=== PATIENT | female | born 1950 | race Caucasian/White ===

== ENCOUNTER 2017-03-26 17:22 | Emergency (ER) | payer MEDICARE, MEDICAID ==
[~2017-03-26] VITALS: Ht 170.2 cm; Wt 136.1 kg
[2017-03-26] MEDS ORDERED: PRINIVIL20 MG PO (17:31)
[2017-03-26] MEDS ORDERED: ARICEPT 5 MG TAB5 MG PO (17:31)
[2017-03-26] MEDS ORDERED: PLAVIX 75 MG TA75 M1 PO (17:31)
[2017-03-26] MEDS ORDERED: EYE DROPS15 M1 OPHTHALMIC (17:31)
[2017-03-26] MEDS ORDERED: COREG25 MG PO (17:32)
[2017-03-26] MEDS ORDERED: ZANTAC 150MG T150 MG PO (17:32)
[2017-03-26] MEDS ORDERED: NAMENDA 10 MG T10 MG PO (17:32)
[2017-03-26] MEDS ORDERED: NEURONTIN600 MG PO (17:32)
[2017-03-26] MEDS ORDERED: ZOLOFT50 MG PO (17:32)
[2017-03-26] MEDS ORDERED: CRESTOR10 MG PO (17:32)
[2017-03-26] MEDS ORDERED: APAP650 PO (17:33)
[2017-03-26] MEDS ORDERED: HYDROCODON-ACE1 EAC8 PO (17:33)
[2017-03-26] MEDS ORDERED: CARAFATE 1 GM TA1 G1 PO (17:33)
[2017-03-26] MEDS ORDERED: ARTIFICIAL TEAR15 M1 OPHTHALMIC (17:34)
[2017-03-26] MEDS ORDERED: IBUPROFEN 200200 M1 PO (17:35)
[2017-03-26] MEDS ORDERED: BENADRYL25 MG PO (17:35)
[2017-03-26] MEDS ORDERED: MILK OF MA2400 MG/10 PO (17:35)
[2017-03-26] MEDS ORDERED: COUGH DROPS2.7 MG PO (17:35)
[2017-03-26] MEDS ORDERED: ZADITOR5 M1 OPHTHALMIC (17:36)
[2017-03-26] MEDS ORDERED: VENTOLIN HFA 1818 GM INH (17:36)
[2017-03-26] MEDS ORDERED: LAMISIL AT12 GM TOP (17:37)
[2017-03-26] MEDS ORDERED: AMMONIUM LACTA226 GM TOP (17:37)
[2017-03-26] MEDS ORDERED: GLUTOSE GEL 1515 G1 PO (17:37)
[2017-03-26] MEDS ORDERED: LANTUS SOL100 UNIT/1 SUBQ (17:37)
[2017-03-26] MEDS ORDERED: NOVOLOG100 UNIT/1 SUBQ ×3 (17:38)
[2017-03-26] MEDS ORDERED: ASPIR 8181 MG PO (17:39)
[2017-03-26] MEDS ORDERED: ICY HOT1 EAC1 TOP (17:39)
[2017-03-26 18:08] LABS: ABSOLUTE BASOPHILS 0.1 thou/uL (0.0-0.2); ABSOLUTE EOSINOPHILS 0.3 thou/uL (0.0-0.7); ABSOLUTE LYMPHOCYTES 0.9 thou/uL (0.8-5.3); ABSOLUTE MONOCYTES 0.3 thou/uL (0.0-1.2); ABSOLUTE NEUTROPHILS 5.8 thou/uL (1.6-8.1); BASOPHILS 0.9 %; EOSINOPHILS 3.6 %; HEMATOCRIT 37.4 % (37.0-47.0); HEMOGLOBIN 12.1 gm/dL (12.0-15.0); LYMPHOCYTES 12.8 %; MCH 27.9 pg (26.0-34.0); MCHC 32.4 g/dL (28.0-37.0); MONOCYTES 4.5 %; MPV 8.8 fl. (7.2-11.1); NUCLEATED RBCS 0 /100WBC; PLATELET COUNT* 187 thou/uL (150-400); POLYS 78.2 %; RBC 4.36 mil/uL (4.20-5.00); RDW-CV 13.8 % (10.5-14.5); WBC 7.4 thou/uL (4.0-11.0)
[2017-03-26 18:18] LABS: ANION GAP 8 mmol/L (7-16); APTT 31.3 Seconds (25.0-31.3); BUN 17 mg/dL (7-18); CALCIUM 8.9 mg/dL (8.5-10.1); CHLORIDE 103 mmol/L (98-107); CO2 30 mmol/L (21-32); CREATININE 0.8 mg/dL (0.6-1.3); GLUCOSE 166 mg/dL (70-99); INR 1.1; POTASSIUM 3.6 mmol/L (3.5-5.1); PROTIME 10.7 Seconds (9.20-11.50); SODIUM 141 mmol/L (136-145)
[2017-03-26 18:38] LABS: ALBUMIN 3.7 g/dL (3.4-5.0); ALKALINE PHOSPHATASE 72 U/L (46-116); CK-MB MASS 1.1 ng/mL (<0.5-3.6); LIPASE 174 U/L (73-393); MAGNESIUM 1.5 mg/dL (1.8-2.4); NT-PRO BRAIN NAT PEPTIDE 420 pg/mL (<300); SGOT 14 U/L (15-37); SGPT 17 U/L (30-65); TOTAL BILIRUBIN 0.3 mg/dL (<0.1-1.0); TOTAL PROTEIN 7.3 g/dL (6.4-8.2); TROPONIN-I LEVEL <0.06 ng/mL (<0.06)
[2017-03-26 19:49] VITALS: BP 153/68
--- NOTE | 2017-03-27 13:06 | EKG ---
[place] [address] ELECTROCARDIOGRAM REPORT Name: NORMA HANDLEY Room: [facility] Kalyn#: [id number] Admission: 03/26/17 Attend Phys: Discharge: 03/26/17 Date of : 50 Report #: [id number] THIS REPORT FOR: //name// [facility] ED Test Date: 2017-03-26 Test Time: 17:52:00 Pat Name: NORMA HANDLEY Department: Room: Gender: F Home Care Physical Therapist: Latia MAC : 1950 Requested By: Ketan Recinos Order Number: [id number] MD: Omar Matthews Measurements Intervals [place] Rate: 59 P: 20 WI: 195 QRS: 4 QRSD: 95 T: -30 QT: 430 QTc: 426 Interpretive Statements Sinus rhythm Borderline T abnormalities, inferior leads No previous ECG available for comparison Electronically Signed On 03-27-2017 13:05:56 [employer] by Omar Matthews [email or web address] <ELECTRONICALLY SIGNED> By: Omar Matthews MD, [facility] 03/27/17 1305 1752 1752 Omar Matthews MD, FACC /EPI
== END 2017-03-26 19:50 | disposition home or self-care (01) ==
LOC: M.ERS 17:22
PROVIDERS: Family Medicine
DX: I10 Essential (primary) hypertension (principal); E66.9 Obesity, unspecified; E11.9 Type 2 diabetes mellitus without complications; E78.00 Pure hypercholesterolemia, unspecified; Z79.82 Long term (current) use of aspirin; Z86.73 Personal history of transient ischemic attack (TIA), and cerebral infarction without residual deficits; Z79.4 Long term (current) use of insulin; Z88.2 Allergy status to sulfonamides